=== PATIENT | female | born 1970 | race Caucasian/White ===

== ENCOUNTER 2020-08-24 07:24 | Emergency (ER) | payer OTHER ==
[~2020-08-24] VITALS: Ht 157.5 cm; Wt 75.3 kg
== END 2020-08-24 11:44 | disposition home or self-care (01) ==
LOC: ER 07:24
DX: K29.00 Acute gastritis without bleeding (principal)

== ENCOUNTER 2020-09-10 03:55 | Emergency (ER) | payer OTHER ==
[~2020-09-10] VITALS: Ht 165.1 cm; Wt 77.1 kg
[2020-09-10] MEDS ORDERED: WELLBUTRIN SR100 MG PO (05:04)
== END 2020-09-10 05:14 ==
LOC: ER 03:55
DX: G44.89 Other headache syndrome (principal); F41.8 Other specified anxiety disorders

== ENCOUNTER 2021-10-23 20:27 | Emergency (ER) | payer OTHER ==
[~2021-10-23] VITALS: Ht 157.5 cm; Wt 74.4 kg
[~2021-10-23 20:27] MED LIST: WELLBUTRIN SR100 MG PO
[2021-10-23] MEDS ORDERED: LEXAPRO5 MG PO (21:03)
[2021-10-23] MEDS ORDERED: PEPCID AC20 MG PO (23:09)
[2021-10-23] MEDS ORDERED: LEVSIN/SL0.125 MG SL (23:09)
== END 2021-10-23 23:34 | disposition home or self-care (01) ==
LOC: ER 20:27
DX: R10.11 Right upper quadrant pain (principal); K80.20 Calculus of gallbladder without cholecystitis without obstruction